=== PATIENT | female | born 1945 | race Caucasian/White ===

== ENCOUNTER 2020-01-01 09:43 | Outpatient (CLI) | payer OTHER, SELFPAY ==
--- NOTE | ~2020-01-01 | PE_ITS ---
EXAMINATION: PET skull to mid thigh DATE: 01/01/2020 14:13 INDICATION: Anal cancer. TECHNIQUE: Blood glucose level was 149 mg/dL. 8.87 mCi of 18-fluorodeoxyglucose (18-FDG) was administ ered i.v. Low dose computed tomography (CT) images were acquired from the base of the brain to the pr oximal thighs for attenuation correction and anatomic localization. Automated exposure control was em ployed. Dose-length product (DLP) was 1035 mGy-cm. Positron emission tomography (PET) images were acq uired in the same distribution. COMPARISON: PET CT 09/06/2019, 06/12/2019, CT abdomen and pelvis 05/07/2019 FINDINGS: Head/neck: There is increased activity in the paraspinal muscles and glottis without CT correlate, li kate physiologic. There are no pathologically enlarged lymph nodes. Chest: There is mild atelectasis in the lungs. There is a 5 mm nodule in right upper lobe without inc reased activity. There is a 14 mm nodule in right lower lobe with maximum SUV of 3.2. There is a 5 mm nodule in right lower lobe without increased activity. There is a 7 mm nodule in right lower lobe wi thout increased activity. There is an 8 mm nodule in right lower lobe without increased activity. No pleural effusion. Cardiomegaly is noted. There are coronary artery calcifications. 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 There are no pathologically enlarged lymph nodes. Abdomen/pelvis/proximal thighs: There is diffuse hepatic steatosis. Calcifications in the spleen are consistent with old granulomatous disease. There are changes of cholecystectomy. The pancreas, adrena l glands, and right kidney are normal. There are dystrophic calcifications in left kidney. There is d iverticulosis of the colon without evidence of diverticulitis. There are no dilated loops of bowel. T here is perianal soft tissue thickening with subjective improvement. Maximum SUV is 4.2, decreased fr om 5.8 on 09/06/2019. There are no pathologically enlarged lymph nodes. There is no free intraperiton eal fluid. IMPRESSION: 1. New pulmonary nodules with increased activity in the largest nodule, consistent with metastatic di sease. 2. Perianal soft tissue thickening with increased activity, improved from 09/06/2019, consistent with primary malignancy. 3. 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 Reviewed, dictated and finalized at location A. TING MACHINE OPERATOR IMPRESSION: 1. New pulmonary nodules with increased activity in the largest nodule, consist ent with metastatic disease. 2. Perianal soft tissue thickening with increased activity, improved from 09/06, consistent with primary malignancy. 3. 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
[2020-01-01 10:57] LABS: Glucose Point of Care 149 (65-105)
== END 2020-01-01 09:44 | disposition home or self-care (01) ==
LOC: ANHIMG 09:44
PROVIDERS: PCP Physician Assistant; Visit Provider Radiology Radiation Oncology
DX: C21.1 Malignant neoplasm of anal canal (principal); R91.8 Other nonspecific abnormal finding of lung field; I71.2 Thoracic aortic aneurysm, without rupture
CPT/HCPCS: 78815; A9552

== ENCOUNTER 2020-01-10 12:43 | Outpatient (CLI) | payer OTHER, SELFPAY ==
--- NOTE | ~2020-01-10 | US_ITS ---
EXAMINATION: US soft tissue UE RT DATE: 01/10/2020 13:18 INDICATION: Right upper extremity localized swelling. TECHNIQUE: Multiple grayscale and Doppler ultrasound images of the right upper extremity were obtaine d. COMPARISON: None FINDINGS: There is an ill-defined 2.1 x 1.4 x 0.6 cm hypoechoic subcutaneous mass in the wrist in the patient's area of concern. The echotexture is similar to normal subcutaneous fat. IMPRESSION: 1. Nonspecific subcutaneous mass in the patient's area of concern at the wrist, likely inflammation. Reviewed, dictated and finalized at location A. PICKER
== END 2020-01-10 12:44 | disposition home or self-care (01) ==
PROVIDERS: PCP Physician Assistant; Visit Provider Radiology Radiation Oncology
DX: R22.31 Localized swelling, mass and lump, right upper limb (principal)
CPT/HCPCS: 76882

== ENCOUNTER 2020-01-24 10:00 | Outpatient (CLI) | payer OTHER, SELFPAY ==
--- NOTE | 2020-01-24 10:02 | ECG_ITS ---
Measurements Intervals [place] Rate: 85 P: [place]: 0 QRS: -5 QRSD: 83 T: 68 QT: 376 QTc: 450 Interpretive Statements SINUS RHYTHM BORDERLINE AV CONDUCTION DELAY BORDERLINE ECG Electronically Signed On 01-24-2020 11:05:02 ENGINEER ASSISTANT by Abhilash Dumont D.O.
[2020-01-24 10:42] LABS: Basophils Absolute Auto 0.1 K/mm3 (0.0-0.1); Basophils Percent Auto 0.6 % (0.2-1.2); Eosinophils Absolute Auto 0.2 K/mm3 (0-0.3); Eosinophils Percent Auto 1.7 % (0-4.4); Hematocrit 38.2 % (37.0-47.0); Hemoglobin 11.9 g/dL (12.0-15.0); Immature Granulocyte Absolute 0.06 K/mm3 (0.00-0.031); Immature Granulocyte Percent A 0.7 % (0-0.5); Lymphocytes Absolute Auto 2.15 K/mm3 (0.9-3.2); Lymphocytes Percent Auto 23.8 % (18.3-44.2); Mean Corpuscular HGB Conc 31.2 g/dl (32-36); Mean Corpuscular Hemoglobin 28.7 pg (26-34); Mean Corpuscular Volume 92.3 fl (80-100); Mean Platelet Volume 9.6 fl (7.4-10.4); Monocytes Absolute Auto 0.6 K/mm3 (0.1-0.6); Monocytes Percent Auto 6.6 % (2.6-8.5); Neutrophils Percent Auto 66.6 % (45.5-73.1); Platelet Count Result 291 k/mm3 (150-375); Red Blood Count 4.14 M/mm3 (4.2-5.4); Red Cell Distribution Width 14.1 % (11.5-14.5)
[2020-01-24 10:53] LABS: INR 0.9; Prothrombin Time 12.2 Seconds (11.1-14.7)
[2020-01-24 10:54] LABS: Partial Thromboplastin Time 25.2 SECONDS (22.3-36.8)
[2020-01-24 10:56] LABS: Blood Urea Nitrogen 34 mg/dL (7-17); Calcium 9.1 mg/dL (8.4-10.2); Carbon Dioxide 24 mmol/L (22-30); Chloride 104 mmol/L (98-107); Estimated Glomerular Filt Rate 37; Glucose 225 mg/dL (65-105); Potassium 4.1 mmol/L (3.4-5.0); Sodium 137 mmol/L (137-145)
== END 2020-01-24 10:01 | disposition home or self-care (01) ==
PROVIDERS: Anesthesiology; PCP Physician Assistant; Visit Provider Surgery
DX: Z01.818 Encounter for other preprocedural examination (principal); E11.9 Type 2 diabetes mellitus without complications; C21.0 Malignant neoplasm of anus, unspecified
CPT/HCPCS: 36415; 80048; 85025; 85610; 85730; 93005

== ENCOUNTER 2020-01-30 00:51 | Day surgery (SDC) | payer OTHER, SELFPAY ==
[2020-01-21 14:27] VITALS: BMI 38.2
[2020-01-30] VITALS (7 sets, daily range): BP systolic 90–118; BP diastolic 49–65; PULSE 65–87; RESP 10–18; TEMP 36.6; O2SAT 94–100
--- NOTE | ~2020-01-30 | XR_ITS ---
EXAMINATION: XR chest port-a-cath/central DATE: 01/30/2020 13:51 INDICATION: Port placement. TECHNIQUE: A single frontal view of the chest was obtained. COMPARISON: Chest 2 views 05/20/2019, PET CT 01/01/2020 FINDINGS: There is mild atelectasis in the lower lung zones. No pleural effusion or pneumothorax. The heart size is normal. There are prominent paracardial fat pads. There is a right internal jugular po rt with tip in superior vena cava. IMPRESSION: 1. Port tip in superior vena cava. 2. Mild atelectasis in the lower lung zones. Reviewed, dictated and finalized at location A.
--- NOTE | ~2020-01-30 | XR_ITS ---
EXAMINATION: XR fl guide central line place DATE: 01/30/2020 13:21 INDICATION: Port placement. TECHNIQUE: A single intraoperative fluoroscopic view of the chest was obtained. I was not present. Fl uoroscopy exposure time was 22 seconds. COMPARISON: Chest 2 views 05/20/2019 FINDINGS: There is a right internal jugular port with tip not included. IMPRESSION: 1. Port placement. Reviewed, dictated and finalized at location A. IMPRESSION: 1. Port placement.
--- NOTE | 2020-01-30 08:01 | PM.HPGS ---
History of Present Illness History of Present Illness Consent: Risks, benefits, and alternatives of placement of a Port-A-Cath have been discussed and questions answered. Patient agrees to proceed with procedure. Chief complaint: malignant neoplasm of anus Narrative: Hayley Emery is a 74 year old female presents at this time for placement of a Port-A-Cath in her to have chemotherapy. 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 Biopsy showing the tumor was done by flexible sigmoidoscopy in October 2019. Patient is working with Dr. Ballard for this chemo. Review of Systems Constitutional: Constitutional: Reports no additional constitutional complaints, Reports fatigue and Denies malaise Comments: Obesity Eyes: Eyes: Denies change in vision and Denies loss of vision ENT: Reports Normal hearing present, Denies change in voice, Denies dizziness, Denies hoarseness and Denies sore throat Cardiovascular: Cardiovascular: Denies chest pain, Denies leg edema and Denies dyspnea Respiratory: Respiratory: Denies cough, Denies dyspnea and Denies wheezing Gastrointestinal: Gastrointestinal: Denies hematochezia, Denies change in bowel habits and Denies heartburn Genitourinary: Genitourinary: Denies urinary frequency and Denies urinary incontinence Neurologic: Reports Normal hearing present, Denies confusion, Denies dizziness, Denies loss of vision, Denies memory loss and Denies seizure-like activity Psychiatric: Psychiatric: Denies confusion, Denies depression and Denies memory loss Endocrine: Endocrine: Denies cold intolerance and Reports fatigue Comments: History of type 2 diabetes on insulin. Hematologic/Lymphatic: Hematologic/Lymphatic: Denies easy bleeding and Denies easy bruising Allergic/Immunologic: Allergic/Immunologic: Denies wheezing PMFSH Past Medical History Medical History (Updated 01/30/20 @ 11:49 by Matthew Gutierrez MD) Anal cancer (Unknown) Diabetes HTN (hypertension) Morbid obesity Meds Home Medications and Allergies Home Medications Medication Instructions Recorded Confirmed Type allopurinol 100 mg DAILY 10/17/19 01/30/20 History calcitriol 0.25 mcg DAILY 10/17/19 01/30/20 History ergocalciferol (vitamin D2) 50,000 unit WEEKLY 10/17/19 01/30/20 History [Vitamin D2] insulin glargine [Lantus U-100 64 unit SUBCUT USEASDIRECTD 10/17/19 01/30/20 History Insulin] insulin lispro [Humalog U-100 12 unit USEASDIRECTD 10/17/19 01/30/20 History Insulin] simvastatin 20 mg PO DAILY 10/17/19 01/30/20 History aspirin [Aspir-81] 81 mg PO DAILY 01/21/20 01/30/20 History Allergies Allergy/AdvReac Type Severity Reaction Status Date / Time No Known Allergies Allergy Unknown Verified 01/30/20 10:27 Exam Const: General: cooperative, healthy appearing, no acute distress, well developed and alert; No confusion Nutritional Appearance: well nourished Orientation/consciousness: patient oriented x3 and No confusion Limitations: no limitations HENMT: Head: normal to inspection, normocephalic and atraumatic Ears: hearing grossly normal bilaterally General nose exam: Normal external nose present Face and sinus: no edema Mouth: Yes Normal oral and palatal mucosa present and Yes lip normal Throat: posterior oropharynx normal Eyes: General: appearance normal, both eyes and all related structures Sclera: sclerae normal Pupils: Equal, round and reactive pupils present EOM: EOMs intact bilaterally Neck: Neck: normal visual inspection, no lymphadenopathy, trachea midline and supple Resp: Effort & Inspection: normal respiratory effort and able to speak in complete sentences Auscultation: clear to auscultation bilaterally Cardio: Jugular venous distension: no JVD Rate: regular rate Rhythm: regular rhythm GI: Inspection: normal to inspection GI Palp: Yes Soft to palpation, No Tenderness to palpation present (GI),
[2020-01-30 10:09] LABS: Glucose Point of Care 176 (65-105)
[2020-01-30] MEDS: LACTATED RINGERS 1,000 ML 30 ML IV CONT (10:45)
--- NOTE | 2020-01-30 11:49 | WPDANESEPPF ---
Anes - Initial Pre Proc Eval Procedure: Operation Date: 01/30/20 12:00 Proposed Procedures p Insertion Jackie Cath - Paul Aldana MD Date/Time: 01/30/20 11:49 Surgeon: Paul Aldana MD Pre Op Diagnosis: malignant neoplasm of anus Patient Data Age: 74 Gender: F Height: 5 ft 1 in Weight: 89.5 kg Last Vital Signs Temp 97.9 F 01/30/20 09:30 Pulse 84 01/30/20 09:30 Resp 18 01/30/20 09:30 BP 101/49 L 01/30/20 09:30 Pulse Ox 95 01/30/20 09:30 Allergies Allergy/AdvReac Type Severity Reaction Status Date / Time No Known Allergies Allergy Unknown Verified 01/30/20 10:27 Home Medications Medication Instructions Recorded Confirmed Type allopurinol 100 mg DAILY 10/17/19 01/30/20 History calcitriol 0.25 mcg DAILY 10/17/19 01/30/20 History ergocalciferol (vitamin D2) 50,000 unit WEEKLY 10/17/19 01/30/20 History [Vitamin D2] insulin glargine [Lantus U-100 64 unit SUBCUT USEASDIRECTD 10/17/19 01/30/20 History Insulin] insulin lispro [Humalog U-100 12 unit USEASDIRECTD 10/17/19 01/30/20 History Insulin] simvastatin 20 mg PO DAILY 10/17/19 01/30/20 History aspirin [Aspir-81] 81 mg PO DAILY 01/21/20 01/30/20 History Laboratory Tests 01/30/20 10:01 POC Capillary Glucose 176 mg/dl H mg/dl (65-105) Patient hx anesthesia problems: none Family hx anesthesia problems: none PMFSH Past Medical History Medical History (Updated 01/30/20 @ 11:49 by Matthew Gutierrez MD) Anal cancer (Unknown) Diabetes HTN (hypertension) Morbid obesity Anes - Eval Final PreProcedure Day of Procedure 01/30/20 11:49 Patient weight: obese Heart: regular rate and rhythm Lungs: clear to auscultation Airway: Mallampati scale class III Neurological: alert and oriented Last oral intake: >/= 8 hours ASA classification: III Emergent: no Anesthetic plan: proceed Anesthesia type and monitoring: general GIVS and standard monitoring Informed Consent: The patient's anesthetic plan and its attendant risks and benefits were discussed with the patient/family/POA. Questions were solicited and answers provided to the satisfaction of the patient/family/POA.
[2020-01-30] MEDS: BUPIVACAINE/EPINEPHRINE 0.5% 10 ML VIAL 12 ML INFILTRATE (12:13)
[2020-01-30] MEDS: ceFAZolin 2 GM/D5W 50 ML 2 GM/50 ML BAG IVPB (12:13)
[2020-01-30] MEDS: HEPARIN SODIUM 5,000 UNITS/ML VIAL 5000 UNITS IRRIGATION (12:13)
--- NOTE | 2020-01-30 13:15 | SUR.OPER ---
eBL:[id number]
--- NOTE | 2020-01-30 13:41 | PM.PROC ---
Procedure Note - Detailed Date of procedure: 01/30/20 Pre-op diagnosis: malignant neoplasm of anus Post-op diagnosis: same Procedure performed: Placement of Port-A-Cath right IJ approach Description of procedure: Patient was seen and marked in the pre-op area prior to coming to the OR. Patient was brought to the operating room. She was placed supine on the operating table and general IV sedation was induced. The nurse loader provided oxygen and IV sedation. Patient's head was carefully turned to the left side while in the supine position and the patient's entire neck and anterior chest on both sides was prepped and draped in the usual sterile fashion. Following this the appropriate time-out was completed confirming procedure and patient. We confirmed that all the needed equipment was present in the room. Following this the ultrasound probe was draped into the field and using the probe we carefully identified the carotid artery and jugular vein on the right neck. I marked the skin directly over the Rt. internal jugular vein. Following this, using the continuous ultrasound guidance, a Cook needle was placed through the skin into this vein. I then was able to draw back good dark blood. Once this was completed a guidewire using a J-tip was advanced through the needle and then the needle and the guidewire cover were withdrawn. C-arm fluoroscopy was used to confirm that the guidewire was nicely in the venous system. Once this was confirmed with the C - arm I preceded on by making the pocket for the port on the patient's anterior right chest approximately 3 centimeters below the clavicle overlying the chest wall. Local anesthetic was infiltrated into the skin where there was a transverse incision marked out. Incision was made and we made a pocket inferior to the incision with just a little dissection superior. The Smart port was tried in the pocket and seemed to fit well. Following this the catheter which had been placed on a tunneling device was tunneled from the port site on the anterior right chest up to the right neck where a small incision had been made with an #11 blade knife. Then the catheter was pulled through so that we would have 15 centimeters to put into the central venous system once the dilation took place. Following this we placed the dilator and sheath over the guidewire in the jugular vein and carefully dilated the tract into the central venous system. The guidewire and dilator were then removed, carefully covering the end of the sheath to prevent air embolus. The end of the catheter which had been cut off straight across and the tip checked was then inserted into the sheath and into the neck. I then carefully pulled the 2 arms of the tear-away sheath away as the academic affairs assistant held the catheter in position with a DeBakey forceps. Following this we checked the position of the catheter with C-arm fluoroscopy confirming that the tip seemed to be in the distal superior vena cava near the junction with the right atrium. I felt that it was in good position and so the rest of the catheter was pulled down toward the feet into the port site. We then measured to the appropriate position to cut the catheter to attach it to the port stem. Then the connector sealing device for the catheter port was placed onto the catheter and then the catheter cut to the appropriate length and inserted onto the stem of the port. Then the connector was advanced onto the stem over the catheter sealing it to the port. A single 3- 0 Prolene suture was also used during this to suture the connector to the port and to the underlying musculature. Following this at one other site the port was sutured to the underlying musculature with the 3-0 Proline. Both prior to connecting the catheter to the port and then using a straight [place] needle following this connection, the port was aspirated of good dark blood and flushed with heparinized saline to keep the catheter from having any a
--- NOTE | 2020-01-30 15:06 | SUR.PHASEII ---
1540 - dr. quionnez in room talking with pt.
[2020-02-01 07:33] LABS: Glucose Point of Care 163 (65-105)
== END 2020-01-30 15:21 | disposition home or self-care (01) ==
PROVIDERS: PCP Physician Assistant; Visit Provider Surgery
PROC: (CPT 36561; principal; 2020-01-30 12:00)
DX: C21.0 Malignant neoplasm of anus, unspecified (principal); I10 Essential (primary) hypertension; E11.9 Type 2 diabetes mellitus without complications; Z79.82 Long term (current) use of aspirin; Z79.4 Long term (current) use of insulin; E66.01 Morbid (severe) obesity due to excess calories; Z68.37 Body mass index [BMI] 37.0-37.9, adult
CPT/HCPCS: 36561; 77001; C1788; J0690; J1644; J2370; J2704; J3010; J7030; J7120

== ENCOUNTER 2020-04-13 23:17 | Emergency (ER) | payer OTHER, SELFPAY ==
--- NOTE | ~2020-04-13 | XR_ITS ---
EXAMINATION: XR chest 2V EXAM DATE: 04/13/2020 23:38 INDICATION: Shortness of breath. TECHNIQUE: Frontal and lateral projections of the chest obtained and reviewed. Comparison is made to prior examination from 01/30/2020. FINDINGS: There is a right-sided portacatheter. The lungs are clear. There are no pleural effusions . Cardiac silhouette is prominent but magnified on this AP technique. There is no pneumothorax kelly pected. There are mild bony degenerative changes. There is aortic arteriosclerosis. IMPRESSION: No acute cardiopulmonary findings. Reviewed, dictated and finalized at location A.
[2020-04-13 23:16] VITALS: BP 128/72; PULSE 90; RESP 12; TEMP 36.6; O2SAT 99
[2020-04-13 23:23] VITALS: PULSE 86
--- NOTE | 2020-04-13 23:23 | ECG_ITS ---
Measurements Intervals [place] Rate: 85 P: 78 LA: 183 QRS: 18 QRSD: 86 T: 77 QT: 361 QTc: 431 Interpretive Statements SINUS RHYTHM BASELINE ARTIFACT- I, II, III, AVL, V1 BORDERLINE ECG Electronically Signed On 04-14-2020 7:08:51 CDT by Abhilash Dumont D.O.
--- NOTE | 2020-04-13 23:36 | ED.SOB ---
HPI - SOB/Dyspnea General Chief Complaint: Shortness of Breath/Dyspnea Stated Complaint: SOB X 1 YEAR History of Present Illness HPI Narrative: SOB and weakness for the past month. She is only SOB with exertion, no issues at rest. No cough, congestion, CP. Additionally she has felt generally weak and feels as though she might fall. No syncope, falls. Related Data Home Medications Medication Instructions Recorded Confirmed Lantus U-100 Insulin 64 unit SUBCUT USEASDIRECTD 10/17/19 02/29/20 allopurinol 100 mg DAILY 10/17/19 02/29/20 calcitriol 0.25 mcg DAILY 10/17/19 02/29/20 ergocalciferol (vitamin D2) 50,000 unit WEEKLY 10/17/19 02/29/20 [Vitamin D2] insulin lispro [Humalog U-100 12 unit USEASDIRECTD 10/17/19 02/29/20 Insulin] aspirin [Aspir-81] 81 mg PO DAILY 01/21/20 02/29/20 simvastatin 40 mg PO HS 02/29/20 02/29/20 dexamethasone 4 mg PO BID 03/21/20 03/21/20 Allergies Allergy/AdvReac Type Severity Reaction Status Date / Time No Known Allergies Allergy Unknown Verified 01/30/20 10:27 Review of Systems Review of Systems: All systems reviewed & are unremarkable except as noted in HPI and below Constitutional: Constitutional: Denies chills, Denies fever(s) and Reports weakness ENT: Denies dizziness Cardiovascular: Cardiovascular: Denies chest pain Respiratory: Respiratory: Denies cough and Reports dyspnea Gastrointestinal: Gastrointestinal: Denies abdominal pain, Denies diarrhea, Denies nausea and Denies vomiting Genitourinary: Genitourinary: Denies hematuria and Denies dysuria Neurologic: Denies headache(s) and Denies focal weakness Hematologic/Lymphatic: Hematologic/Lymphatic: Denies easy bleeding and Denies easy bruising PMFSH Past Medical History Medical History Anal cancer (Unknown) Diabetes HTN (hypertension) Morbid obesity Exam Const: General: no acute distress, alert and ill appearing chronically Nutritional Appearance: well nourished Orientation/consciousness: patient oriented x3 HENMT: Head: normal to inspection Mouth: Yes dry mucous membranes Eyes: Conjunctivae: conjunctivae normal Pupils: Equal, round and reactive pupils present EOM: EOMs intact bilaterally Resp: Effort & Inspection: normal respiratory effort Auscultation: clear to auscultation bilaterally Cardio: Rate: regular rate Rhythm: regular rhythm GI: Inspection: non-distended GI Palp: Yes Soft to palpation and No Tenderness to palpation present (GI) Skin: General skin exam: pallor Neuro: General: patient oriented x3, moves all extremities, no focal motor deficits and CN's II-XI intact bilaterally Speech: normal speech Extrem: General: normal to inspection and no edema Course Vital Signs Vital signs: Vital Signs Temperature 36.6 C 04/13/20 23:16 Pulse Rate 90 04/13/20 23:16 Respiratory Rate 12 04/13/20 23:16 Blood Pressure 128/72 04/13/20 23:16 Pulse Oximetry 99 04/13/20 23:16 Temperature 36.6 C 04/13/20 23:16 Pulse Rate 87 04/14/20 02:50 Respiratory Rate 19 04/14/20 02:50 Blood Pressure 162/65 H 04/14/20 02:50 Pulse Oximetry 95 04/14/20 02:50 MDM - SOB/Dyspnea MDM Narrative Medical decision making narrative: Labs indicating dehydration and UTI. Ambulating without difficulty after hydration. Will treat for UTi with oral antibiotics. [facility] Lab Data Result diagrams: 04/13/20 23:49 04/13/20 23:49 Labs: Lab Results 04/13/20 04/13/20 04/13/20 Range/Units 23:49 23:49 23:49 WBC 9.9 (4.5-10.0) K/mm3 RBC 3.72 L (4.2-5.4) M/mm3 Hgb 11.4 L (12.0-15.0) g/dL Hct 35.6 L (37.0-47.0) % MCV 95.7 (80-100) fl MCH 30.6 (26-34) pg MCHC 32.0 (32-36) g/dl RDW 18.1 H (11.5-14.5) % Plt Count 290 (150-375) k/mm3 MPV 9.2 (7.4-10.4) fl Immature Gran % (Auto) 0.4 (0-0.5) % Neut % (Auto) 69.6 (45.5
[2020-04-13] MEDS: SODIUM CHLORIDE 0.9% IV 500 ML 999 ML IV CONT (23:45)
[2020-04-13 23:56] LABS: Basophils Percent Auto 0.2 % (0.2-1.2); Eosinophils Percent Auto 0.2 % (0-4.4); Hematocrit 35.6 % (37.0-47.0); Hemoglobin 11.4 g/dL (12.0-15.0); Immature Granulocyte Absolute 0.04 K/mm3 (0.00-0.031); Immature Granulocyte Percent A 0.4 % (0-0.5); Lymphocytes Absolute Auto 1.88 K/mm3 (0.9-3.2); Mean Corpuscular Hemoglobin 30.6 pg (26-34); Mean Corpuscular Volume 95.7 fl (80-100); Mean Platelet Volume 9.2 fl (7.4-10.4); Monocytes Absolute Auto 1.1 K/mm3 (0.1-0.6); Monocytes Percent Auto 10.6 % (2.6-8.5); Neutrophils Absolute Auto 6.9 K/mm3 (1.3-6.7); Neutrophils Percent Auto 69.6 % (45.5-73.1); Platelet Count Result 290 k/mm3 (150-375); Red Blood Count 3.72 M/mm3 (4.2-5.4); Red Cell Distribution Width 18.1 % (11.5-14.5); White Blood Count 9.9 K/mm3 (4.5-10.0)
[2020-04-14] VITALS: O2SAT 94
[2020-04-14 00:07] LABS: Alanine Aminotransferase 19 U/L (4-35); Albumin Level 3.8 g/dL (3.5-5.1); Alkaline Phosphatase 181 U/L (38-126); Aspartate Amino Transferase 24 U/L (14-36); Bilirubin,Total < 0.1 mg/dL (0.2-1.3); Blood Urea Nitrogen 28 mg/dL (7-17); Carbon Dioxide 24 mmol/L (22-30); Chloride 106 mmol/L (98-107); Estimated Glomerular Filt Rate 29; Glucose 106 mg/dL (65-105); Potassium 4.1 mmol/L (3.4-5.0); Sodium 139 mmol/L (137-145)
[2020-04-14 00:15] LABS: Prothrombin Time 13.1 Seconds (11.1-14.7)
[2020-04-14 00:16] LABS: Partial Thromboplastin Time 26.2 SECONDS (22.3-36.8)
[2020-04-14] MEDS: SODIUM CHLORIDE 0.9% IV 1,000 ML 999 ML IV CONT (00:41)
[2020-04-14 00:43] VITALS: BP 144/78; PULSE 77; RESP 14; O2SAT 96
[2020-04-14 00:54] LABS: Add Urine Microscopic? YES; Appearance Urine Clear (Clear); Bacteria Urine Trace /hpf; Bilirubin Urine Negative (Negative); Blood Urine 1+ (Negative); Color Urine Yellow (Yellow); Glucose Urine UA Negative (Negative); Ketones Urine Negative (Negative); Leukocyte Esterase Ur 3+ LEU/UL (Negative); Mucus Urine Rare /lpf; Nitrate Urine Negative (Negative); Protein Urine 1+ mg/dL (Negative); Specific Grav Ur 1.014 (1.001-1.035); Squamous Epithelial Cell Urine Occasional /hpf (Few); Urobilinogen Urine Negative mg/dL (<2.0); WBC Urine >75 /hpf
[2020-04-14 01:27] VITALS: BP 134/76; PULSE 80; RESP 17; O2SAT 98
[2020-04-14] MEDS: CEFDINIR 300 MG CAPSULE PO (01:27)
[2020-04-14 02:30] VITALS: BP 162/65; PULSE 84; RESP 18; O2SAT 97
[2020-04-14 02:50] VITALS: BP 162/65; PULSE 87; RESP 19; O2SAT 95
== END 2020-04-14 02:50 | disposition home or self-care (01) ==
PROVIDERS: Emergency Provider Emergency Medicine; PCP Physician Assistant
DX: N30.01 Acute cystitis with hematuria (principal); I10 Essential (primary) hypertension; E11.9 Type 2 diabetes mellitus without complications; E66.01 Morbid (severe) obesity due to excess calories; R94.31 Abnormal electrocardiogram [ECG] [EKG]
CPT/HCPCS: 36415; 71046; 80053; 81001; 85025; 85610; 85730; 86850; 86900; 86901; 87086; 87088; 93005; 96360; 96361; 99284; A9270; J7030; J7040

== ENCOUNTER 2020-04-16 00:25 | Observation (INO) | payer OTHER, SELFPAY ==
[2020-04-16] VITALS (16 sets, daily range): BP systolic 81–142; BP diastolic 48–75; PULSE 74–103; RESP 16–20; TEMP 35.7–36.8; O2SAT 95–100; BMI 37.3
--- NOTE | ~2020-04-16 | US_ITS ---
EXAMINATION: US venous doppler UE RT DATE: 04/16/2020 15:23 INDICATION: Right upper limb swelling. TECHNIQUE: Grayscale ultrasound images without and with compression and Doppler ultrasound images of the right upper extremity veins were obtained. COMPARISON: None. FINDINGS: The visualized portions of the right internal jugular vein, subclavian vein, axillary vein, brachial veins, basilic vein, cephalic vein, radial vein, and ulnar vein are patent. IMPRESSION: 1. No deep venous thrombosis. Reviewed, dictated and finalized at location A.
--- NOTE | ~2020-04-16 | US_ITS ---
EXAMINATION: US venous doppler LE RT DATE: 04/16/2020 14:56 INDICATION: Right lower limb swelling. TECHNIQUE: Grayscale ultrasound images without and with compression and Doppler ultrasound images of the right lower extremity veins were obtained. COMPARISON: Ultrasound 05/05/2011 FINDINGS: The visualized portions of right common femoral vein, profunda (deep) femoral vein, femoral vein, pop liteal vein, peroneal veins, posterior tibial veins, and greater saphenous vein outflow are patent. IMPRESSION: 1. No deep venous thrombosis. Reviewed, dictated and finalized at location A.
--- NOTE | ~2020-04-16 | XR_ITS ---
EXAMINATION: XR chest 1V portable DATE: 04/16/2020 00:54 INDICATION: Shortness of breath. TECHNIQUE: A single frontal view of the chest was obtained. COMPARISON: Chest 2 views 04/13/2020, chest CT 04/16/2020 FINDINGS: There is no pneumonia, pleural effusion, or pneumothorax. The heart size is normal. Mediast inal lipomatosis is noted. There is a right internal jugular port with tip in superior vena cava. IMPRESSION: 1. No acute cardiopulmonary disease. Reviewed, dictated and finalized at location A.
--- NOTE | ~2020-04-16 | CT_ITS ---
EXAMINATION: CTA chest PE protocol DATE: 04/16/2020 02:54 INDICATION: Shortness of breath. TECHNIQUE: Computed tomography angiography (CTA) of the chest was performed with 100 mL Omnipaque-350 intravenous contrast timed to evaluate the pulmonary arteries. Coronal maximum intensity projection 3D-reconstructions were created by the technologist. Automated exposure control and iterative reconst ruction technique were employed. The dose-length product was 686.78 mGy-cm. COMPARISON: PET/CT 01/01/2020 FINDINGS: There is mild atelectasis in the lungs. There is mild scarring in right upper lobe. There i s a 5 mm nodule in right lower lobe, improved from 7 mm on 01/01/2020. There is a 4 mm nodule in right lower lobe, improved from 12 mm. No pleural effusion. The heart size is normal. There are coronary a rtery calcifications. No pericardial effusion. There is no pulmonary embolus. There is a 5.4 cm fusif orm aneurysm of distal ascending aorta and aortic arch. There is a right internal jugular port with t ip at superior cavoatrial junction. Calcifications in the spleen are consistent with old granulomatou s disease. Calcified periportal lymph nodes are consistent with old granulomatous disease. The gallbl adder is absent. There is mild thoracic spondylosis. There are bridging endplate osteophytes at multi ple levels in the spine, consistent with diffuse idiopathic skeletal hyperostosis (DISH). IMPRESSION: 1. No pulmonary embolus. 2. 5.4 cm fusiform aneurysm of the distal ascending aorta and aortic arch, stable from 01/01/2020. 3. Right lower lobe pulmonary nodules with interval improvement, consistent with metastatic disease. Reviewed, dictated and finalized at location A. IMPRESSION: 1. No pulmonary embolus. 2. 5.4 cm fusiform aneurysm of the distal ascending aorta and aortic arch, stab le from 01/01/2020. 3. Right lower lobe pulmonary nodules with interval improvement, consistent wit h metastatic disease.
--- NOTE | 2020-04-16 00:27 | ECG_ITS ---
Measurements Intervals [place] Rate: 100 P: 58 [place]: 168 QRS: 17 QRSD: 86 T: 67 QT: 366 QTc: 474 Interpretive Statements SINUS TACHYCARDIA BASELINE WANDER- I, II BORDERLINE ECG Electronically Signed On 04-16-2020 7:03:44 CDT by Abhilash Dumont D.O.
[2020-04-16 00:49] LABS: Basophils Percent Auto 0.3 % (0.2-1.2); Eosinophils Percent Auto 0.3 % (0-4.4); Hematocrit 35.8 % (37.0-47.0); Hemoglobin 11.5 g/dL (12.0-15.0); Immature Granulocyte Absolute 0.05 K/mm3 (0.00-0.031); Immature Granulocyte Percent A 0.5 % (0-0.5); Lymphocytes Absolute Auto 2.67 K/mm3 (0.9-3.2); Lymphocytes Percent Auto 28.8 % (18.3-44.2); Mean Corpuscular HGB Conc 32.1 g/dl (32-36); Mean Corpuscular Hemoglobin 31.1 pg (26-34); Mean Corpuscular Volume 96.8 fl (80-100); Mean Platelet Volume 9.2 fl (7.4-10.4); Monocytes Absolute Auto 0.9 K/mm3 (0.1-0.6); Neutrophils Absolute Auto 5.6 K/mm3 (1.3-6.7); Neutrophils Percent Auto 60.1 % (45.5-73.1); Platelet Count Result 349 k/mm3 (150-375); Red Cell Distribution Width 18.1 % (11.5-14.5); White Blood Count 9.3 K/mm3 (4.5-10.0)
[2020-04-16 00:58] LABS: Lactic Acid Reflex 2.4 mmol/L (0.7-2.1)
[2020-04-16 01:03] LABS: Blood Urea Nitrogen 19 mg/dL (7-17); Carbon Dioxide 27 mmol/L (22-30); Chloride 104 mmol/L (98-107); Estimated CRCL calculation 39 ml/min; Estimated Glomerular Filt Rate 40; Glucose 47 mg/dL (65-105); Potassium 3.4 mmol/L (3.4-5.0); Sodium 138 mmol/L (137-145)
[2020-04-16] MEDS: DEXTROSE 50% 25 GM/50 ML SYRINGE (01:13)
--- NOTE | 2020-04-16 01:13 | PC.NURSE ---
VRBO FOR AMP D50 FROM DR KLEIN TO GIVE IVP X1
--- NOTE | 2020-04-16 02:23 | ED.SOB ---
HPI - SOB/Dyspnea General Chief Complaint: Shortness of Breath/Dyspnea Stated Complaint: sob Time Seen by Provider: 04/16/20 02:07 History of Present Illness HPI Narrative: Patient presents with lower abdominal and pelvic pain. She missed her last chemotherapy for her cancer. She said it spreading from her anus into her pelvis. She has a port for chemotherapy. She appears pale and weak. Related Data Home Medications Medication Instructions Recorded Confirmed Lantus U-100 Insulin 64 unit SUBCUT USEASDIRECTD 10/17/19 02/29/20 allopurinol 100 mg DAILY 10/17/19 02/29/20 calcitriol 0.25 mcg DAILY 10/17/19 02/29/20 ergocalciferol (vitamin D2) 50,000 unit WEEKLY 10/17/19 02/29/20 [Vitamin D2] insulin lispro [Humalog U-100 12 unit USEASDIRECTD 10/17/19 02/29/20 Insulin] aspirin [Aspir-81] 81 mg PO DAILY 01/21/20 02/29/20 simvastatin 40 mg PO HS 02/29/20 02/29/20 dexamethasone 4 mg PO BID 03/21/20 03/21/20 Allergies Allergy/AdvReac Type Severity Reaction Status Date / Time No Known Allergies Allergy Unknown Verified 01/30/20 10:27 Review of Systems Review of Systems: All systems reviewed & are unremarkable except as noted in HPI and below PMFSH Past Medical History Medical History Anal cancer (Unknown) Diabetes HTN (hypertension) Morbid obesity Exam Narrative: Exam Narrative: GENERAL: Pale weak woman with bald head. Keeps her eyes closed. HEAD: Normocephalic, atraumatic. EYES: PERRLA and EOMI. ENT: Nares clear, no rhinorrhea or epistaxis. Mucous membranes moist. NECK: Supple. CHEST: Clear to auscultation. No respiratory distress. Port in the right upper chest. HEART: Regular rate and rhythm. No murmur heard. Normal peripheral pulses. ABDOMEN: Soft, nontender, nondistended, normal active bowel sounds. EXTREMITIES: Normal range of motion. No edema. SKIN: Warm, dry, no rash. NEURO: No focal deficits. Alert and oriented x3. PSYCH: Flat affect. Course Reevaluation(s) Reevaluation #1: Went in to tell the patient about her good CAT scan of the chest except for the aortic aneurysm. She is feeling a little bit better now, on the IV fluids. She drank water, and will need to have a little snack before going upstairs. Date: 04/16/20 Time: 03:35 Consultations Consultation #1: Call Dr. Evans for admission for hypotension and hypoglycemia and lactic acidosis. Date: 04/16/20 Time: 03:36 Vital Signs Vital signs: Vital Signs Temperature 97.2 F L 04/16/20 00:18 Pulse Rate 90 04/16/20 00:18 Respiratory Rate 18 04/16/20 00:18 Blood Pressure 119/61 04/16/20 00:18 Pulse Oximetry 98 04/16/20 00:18 Temperature 97.2 F L 04/16/20 00:18 Pulse Rate 74 04/16/20 03:32 Respiratory Rate 16 04/16/20 03:32 Blood Pressure 106/75 04/16/20 03:32 Pulse Oximetry 97 04/16/20 03:32 MDM - SOB/Dyspnea Medical Records Attestation: I reviewed the patient's medical records. Lab Data Attestation: I reviewed the patient's lab results. Result diagrams: 04/16/20 00:38 04/16/20 00:38 Labs: Lab Results 04/16/20 04/16/20 04/16/20 Range/Units 00:38 00:38 00:38 WBC 9.3 (4.5-10.0) K/mm3 RBC 3.70 L (4.2-5.4) M/mm3 Hgb 11.5 L (12.0-15.0) g/dL Hct 35.8 L (37.0-47.0) % MCV 96.8 (80-100) fl MCH 31.1 (26-34) pg MCHC 32.1 (32-36) g/dl RDW 18.1 H (11.5-14.5) % Plt Count 349 (150-375) k/mm3 MPV 9.2 (7.4-10.4) fl Immature Gran % (Auto) 0.5 (0-0.5) % Neut % (Auto) 60.1 (45.5-73.1) % Lymph % (Auto) 28.8 (18.3-44.2) % Graves % (Auto) 10.0 H (2.6-8.5) % Eos % (Auto) 0.3 (0-4.4) % Baso % (Auto) 0.3 (0.2-1.2) % Lymph # (Auto) 2.67 (0.9-3.2) K/mm3 Graves # (Auto) 0.9 H (0.1-0.6) K/mm3 Eos # (Auto) 0.0 (0-0.3) K/mm3 Baso # (Auto) 0.0 (0.0-0.1) K/mm3 Abs Immat Gran (auto) 0.05 H (0.00-0.031) K/mm3 Absolute Neuts (auto) 5.6 (1.3-6.
[2020-04-16 02:28] LABS: Glucose Point of Care 53 (65-105)
[2020-04-16 02:28] LABS: Glucose Point of Care 102 (65-105)
[2020-04-16] MEDS: SODIUM CHLORIDE 0.9% IV 1,000 ML 999 ML IV CONT (03:09)
[2020-04-16 03:44] LABS: Reflex Lactic Acid Yes or No Add Lactic
[2020-04-16 04:18] LABS: Lactic Acid 1.2 mmol/L (0.7-2.1)
[2020-04-16 04:30] LABS: Glucose Point of Care 92 (65-105)
--- NOTE | 2020-04-16 04:54 | ADMGEN ---
This patient, Hayley Emery, was admitted to Medical Room 242-. Patient/family oriented to hospital policies and general routines including ID bracelet, bed and alarms, visiting hours, pain management, procedures, bathroom and other care routines, personal items, smoking policy, room service/diet, and visiting hours. Valuables list has been completed. Information on how to activate the Rapid Response Team has been discussed. Patient/Family are encouraged to report perceived risks to care and to ask questions if they do not understand what they are told or what they should do.
[2020-04-16 05:17] LABS: Glucose Point of Care 102 (65-105)
--- NOTE | 2020-04-16 05:52 | PM.IMHP ---
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 Ballard. The patient is known to have had radiation therapy last year and is currently undergoing chemotherapy, the last treatment was March 21, 2020. She reports that lately has had increased generalized weakness and debility, poor appetite, and feeling bad. She has been experiencing right leg weakness from peripheral neuropathy which is thought to be secondary to her chemotherapy. She also reports 6 falls in the last month. Yesterday the patient was feeling very nauseated but did not vomit. She was just seen in the ER two days ago when she was diagnosed with a UTI and sent home with ciprofloxacin. She last took 12 units of Novolog insulin around 5 pm yesterday evening but did not have an appetite. She only ate jello. On arrival to the ER tonight the patient was evaluated and found to have have a glucose of 47 mg/dl. She recieved D50 IV. Tonight the patient is complaining of feeling very tired and weak. She has had increased shortness of breath for various months now and denies any acute worsening shortness of breath. She also denies any cough, fevers, or chills. No sore throat is reported. On further questioning she also denies headache, dizziness, chest pain, palpitations, LE swelling, dysuria, hematuria, diarrhea, or vomiting. She was initially found to be hypotensive in the ER w/ an elevated lactic acid but this resolved w/ IV fluid therapy. We have been asked to admit the patient to the hospital for her hypoglycemia. The patient was also empirically treated with IV antibiotics by ER provider? Review of Systems Review of Systems: All systems reviewed & are unremarkable except as noted in HPI and below PMFSH Past Medical History Medical History Anal cancer (Unknown) CKD (chronic kidney disease) Diabetes HTN (hypertension) Morbid obesity Port-A-Cath in place Surgical History Surgical History History of cholecystectomy History of tubal ligation Hx of cardiac cath Hx of tonsillectomy Family History Family History Mother COPD (chronic obstructive pulmonary disease) Father Tuberculosis Social History Social History Smoking status: Never smoker Alcohol intake: never Substance use: never Spiritual care concerns: No Meds Home Medications and Allergies Home Medications Medication Instructions Recorded Confirmed Type allopurinol 100 mg PO DAILY 10/17/19 04/16/20 History calcitriol 0.25 mcg PO DAILY 10/17/19 04/16/20 History ergocalciferol (vitamin D2) 50,000 unit PO WEEKLY 10/17/19 04/16/20 History [Vitamin D2] aspirin [Aspir-81] 81 mg PO DAILY 01/21/20 04/16/20 History simvastatin 40 mg PO HS 02/29/20 04/16/20 History Imodium Multi-Symptom Relief 1 tablet PO Q2H PRN 04/16/20 04/16/20 History Lantus U-100 Insulin 35 unit SUBCUT HS #0 ml 04/16/20 04/16/20 Rx acetaminophen [Arthritis Pain 650 mg PO Q8H PRN 04/16/20 04/16/20 History Reliever] gabapentin 600 mg PO TID 04/16/20 04/16/20 History hydrocodone-acetaminophen [[place]] 1 tablet PO Q4H PRN 04/16/20 04/16/20 History insulin lispro [Humalog U-100 6 unit SUBCUT TIDWM #3 ml 04/16/20 Rx Insulin] omeprazole 20 mg PO DAILY #30 cap 04/16/20 Rx ondansetron HCl [Zofran] 4 mg PO Q8H PRN 04/16/20 04/16/20 History Allergies Allergy/AdvReac Type Severity Reaction Status Date / Time No Known Allergies Allergy Unknown Verified 01/30/20 10:27 Vital Signs Vital Signs - 24 hr 04/16/20 00:18 04/16/20 00:26 04/16/20 00:49 Temperature 36.2 C L Pulse Rate 90 90 82 Respiratory Rate
[2020-04-16 07:28] LABS: Glucose Point of Care 106 (65-105)
[2020-04-16 11:06] LABS: Hemoglobin A1C 7.8 % (<5.7)
[2020-04-16 11:26] LABS: Glucose Point of Care 164 (65-105)
[2020-04-16] MEDS: GABAPENTIN 300 MG CAPSULE 600 MG PO (15:05)
--- NOTE | 2020-04-16 16:36 | PM.DS ---
DS: Discharge Diagnosis Discharge Diagnosis (1) Hypoglycemia: Code(s): E16.2 - Hypoglycemia, unspecified Status: Acute Assessment and Plan: -----patient's appetite has decreased and her A1c is now 7.8. I have cut back her insulin since she has had multiple episodes of hypoglycemia. This may need to be increased as her diet increases. She is to take her blood glucose before every meal and before bed and record the numbers. She is to follow-up with her primary care doctor so her insulin can be adjusted as she improves. (2) Ascending aortic aneurysm: Code(s): I71.2 - Thoracic aortic aneurysm, without rupture Status: Acute Assessment and Plan: ------The patient has an ascending aortic aneurysm of 5.3 cm. I spoke with her daughter about this and the patient. They are going to follow up with vascular surgery. [facility] vascular surgery number was given at discharge. (3) Acidosis, lactic: Code(s): E87.2 - Acidosis Status: Resolved Assessment and Plan: ------Likely secondary to dehydration from poor PO intake which is now resolved. (4) Anal cancer: Code(s): C21.0 - Malignant neoplasm of anus, unspecified Status: Acute Assessment and Plan: -----currently undergoing chemo, follow-up with oncology as recommended (5) Diabetes: Code(s): E11.9 - Type 2 diabetes mellitus without complications Status: Chronic Assessment and Plan: See above (6) HTN (hypertension): Code(s): I10 - Essential (primary) hypertension Status: Chronic Assessment and Plan: Blood pressure improved to 122/59 at discharge (7) CKD (chronic kidney disease): Code(s): N18.9 - Chronic kidney disease, unspecified Status: Chronic Assessment and Plan: stable. Cr appears to be at baseline. Monitor renal function and urine output. Renally dose medications. DS: Summary Hospital Course Reason for hospitalization: Dehydration, cancer Hospital Course: Patient is 74-year-old female with known anal cancer undergoing chemotherapy who presented emergency room for decreased appetite and weakness. White blood cell count within normal limits, hemoglobin 11.5, hematocrit 35.8, platelets 349. BMP showed glucose 47, BUN 19, creatinine 1.3. Lactic acid originally 2.4. CTA was performed which showed no pulmonary emboli but did show 5.4 fusiform aneurysm of the distal ascending aorta and aortic arch which is stable from December of 2019. Also showed improvement with her right lower lobe nodule. Patient was admitted to the hospitalist service overnight for IV hydration. There is no indication of infection and her urine culture was negative from the day prior. She was originally placed on Cipro but since she has an aneurysm, this was stopped. Blood cultures are negative today but will be monitored until finalized. The next day, the patient had improved greatly. She was able to eat most of her meals and she felt like she had more energy. Physical therapy saw her and recommended home health as she lives with her daughter and her daughter helps with most of her ADLs. The patient is to follow-up with her primary care physician, vascular surgeon and oncologist. She was discharged in stable condition. Status at Discharge Functional status at discharge: uses cane/walker Overall status at discharge: patient is back to baseline Time Spent with Patient Time attestation: Total time spent providing and/or coordinating discharge services:34 min Time spent: Greater than 30 minutes Exam Narrative: Exam Narrative: General: Well developed well nourished patient resting comfortably in bed in NAD HEENT: normocephalic Neck: supple Neuro: Alert and oriented x4 CV:RRR Resp:CTA Abd: Soft, non distended. No pain to palpation. Positive bowel sounds Extremities: No swelling, erythema, or pain to palpation. DS: Data Data Completed and Pending
[2020-04-16] MEDS: HEPARIN SOD FLUSH 500 UNITS/5 ML SYRINGE IV PUSH (17:16)
--- NOTE | 2020-04-17 06:19 | CONS_ITS ---
DATE OF CONSULTATION: 04/16/2020 REASON FOR CONSULTATION: Metastatic anal cancer. 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 Unfortunately, patient had a recurrence of the cancer with metastatic involvement of lung diagnosed on March 31, 2020. She started palliative chemotherapy with carboplatin and Taxol and received 3 cycles with the last treatment on March 21, 2020. Further treatment was delayed due to the patient's recent fall. She was also treated for UTI when she came into the hospital just last weekend. The patient called back to the answering service last night with complaint of increasing shortness of breath, extreme lethargy, tiredness and fatigue and weakness in the bilateral lower extremities. I advised her to go to the ER for further evaluation from where she was admitted to the hospital. REVIEW OF SYSTEMS: Patient denies any fever, chills, and night sweats. She remains tired and fatigued, but has improved. Her breathing has improved. A 12-point review of systems was reviewed and as per HPI, otherwise negative. PAST MEDICAL HISTORY: Metastatic anal cancer, CKD, diabetes, hypertension. PAST SURGICAL HISTORY: Cholecystectomy, tubal ligation, cardiac cath, tonsillectomy. FAMILY HISTORY: Positive for COPD in the mother and TB in the father. SOCIAL HISTORY: The patient denies any history of smoking and drinking. HOME MEDICATIONS: Reviewed. ALLERGIES: REVIEWED. PHYSICAL EXAMINATION: GENERAL: This patient is an obese female, in no apparent distress. Alert and oriented. VITAL SIGNS: Per nursing note. HEENT: Normocephalic, atraumatic. Clear oropharynx. LUNGS: Clear to auscultation bilaterally. CARDIOVASCULAR: Regular rate and rhythm. No murmurs. ABDOMEN: Soft, nontender, nondistended. Bowel sounds are positive in all 4 quadrants. No hepatosplenomegaly. EXTREMITIES: No edema. NEUROLOGIC: Grossly intact. LABORATORY DATA: WBC 9.3, hemoglobin 11.5, platelets 349,000, neutrophils 60%. Creatinine 1.3. CTA chest was performed due to shortness of breath on April 16 that showed no evidence of pulmonary embolism. There was 5.4 cm aneurysm of distal ascending aorta, stable. There were right lower lobe pulmonary nodules with interval improvement consistent with metastatic disease. Right upper extremity Doppler studies showed no evidence of DVT. ASSESSMENT AND PLAN: 1. Metastatic anal cancer with lung involvement. The patient is status post chemotherapy with carboplatin and Taxol and has received 3 cycles with the last chemotherapy on March 21, 2020. Further chemotherapy was delayed due to patient's poor performance status and recent fall. We will see her back in our office next week for resumption of chemotherapy upon her clinical improvement. 2. Recent urinary tract infection. The patient has completed course of antibiotic therapy. 3. Shortness of breath. CTA chest showed improvement in the lung metastasis without any evidence of pulmonary embolism. Clinically, she has improved and should be able to go home today with followup instruction. I will see her back in my office for continuation of chemotherapy upon clinical recovery. LISA CHANDRA M.D. PIANO MOVER PIANO MOVER D I MT: Thang
--- NOTE | 2020-04-22 10:15 | PC.NURSE ---
Blood cx are negative.
== END 2020-04-16 17:19 | disposition home health service (06) ==
LOC: ANHED 02:52 → ANH2MED 04:14
PROVIDERS: Physician Assistant; Admitting Provider Family Medicine; Emergency Provider Emergency Medicine; PCP Physician Assistant; Visit Provider Internal Medicine
DX: E86.0 Dehydration (principal); E11.649 Type 2 diabetes mellitus with hypoglycemia without coma; I71.2 Thoracic aortic aneurysm, without rupture; N39.0 Urinary tract infection, site not specified; C21.0 Malignant neoplasm of anus, unspecified; E66.01 Morbid (severe) obesity due to excess calories; E11.22 Type 2 diabetes mellitus with diabetic chronic kidney disease; I12.9 Hypertensive chronic kidney disease with stage 1 through stage 4 chronic kidney disease, or unspecified chronic kidney disease; I95.9 Hypotension, unspecified; N18.9 Chronic kidney disease, unspecified; R91.8 Other nonspecific abnormal finding of lung field; R29.6 Repeated falls; Z92.21 Personal history of antineoplastic chemotherapy; Z68.37 Body mass index [BMI] 37.0-37.9, adult; R22.41 Localized swelling, mass and lump, right lower limb
CPT/HCPCS: 36415; 71045; 71275; 80048; 82948; 83036; 83605; 85025; 87040; 93005; 93971; 96374; 96375; 97161; 97165; 99285; A9270; G0378; J0696; J7030; Q9967

== ENCOUNTER 2020-06-04 02:48 | Observation (INO) | payer OTHER, SELFPAY ==
[2020-06-04] VITALS (10 sets, daily range): BP systolic 95–150; BP diastolic 46–86; PULSE 82–111; RESP 9–18; TEMP 36.4–36.8; O2SAT 94–98; BMI 37.0
--- NOTE | ~2020-06-04 | XR_ITS ---
EXAMINATION: XR tibia fibula RT 2V DATE: 06/04/2020 03:59 INDICATION: Right lower leg pain post fall TECHNIQUE: Anteroposterior and lateral views of the right tibia and fibula were obtained. COMPARISON: None. FINDINGS: Bone alignment is normal. No fracture. 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 Profiled portions of the right ankle, subtalar and talonavicular joint spaces appear relatively preserved. No right ankle joint effusion. A few small round phleboliths and larger more irregular coarse dystrophic calcification in the soft tissues anterior to the mid tibia. Diffuse subcutaneous edema about the lower leg and more prominently over the dorsum of the foot. IMPRESSION: 1. No acute osseous abnormality. 2. Severe medial compartment predominant tricompartmental osteoarthritis at the right knee. Reviewed, dictated and finalized at location A.
--- NOTE | ~2020-06-04 | XR_ITS ---
XR chest 1V portable 06/04/2020 03:59 Indication: Weakness and dyspnea Procedure: AP portable chest Comparison: Comparison to multiple prior studies sequentially, with oldest reviewed study dated 05/20. Findings: Portacatheter tip in the SVC. Heart size normal. There is atherosclerosis. No focal air spa ce disease, pulmonary edema, pleural effusion or suspected pneumothorax. Impression: 1: No acute cardiopulmonary disease. Reviewed, dictated and finalized at location B. Impression: 1: No acute cardiopulmonary disease.
--- NOTE | ~2020-06-04 | CT_ITS ---
EXAMINATION: CT brain wo con DATE: 06/04/2020 03:34 INDICATION: Right-sided weakness. Status post chemotherapy. TECHNIQUE: Computed tomography (CT) of the head was performed without intravenous contrast. The dose- length product was 605.33 mGy-cm. The mA was adjusted according to patient size. Iterative reconstruc tion technique was employed. COMPARISON: None FINDINGS: No acute intracranial hemorrhage, infarction, mass or mass effect. No ventriculomegaly or m idline shift. Basilar cisterns are patent. There are scattered mild periventricular and subcortical w jimbo matter changes, most likely related to small vessel ischemic disease (microangiopathy). There is intracranial atherosclerosis. Small air-fluid level right maxillary sinus with mucoperiosteal reacti on. Small right mastoid effusion. No depressed skull fractures. IMPRESSION: 1. No acute intracranial abnormality. 2: Mild sinus disease. 3: Chronic age-related findings. Reviewed, dictated and finalized at location B.
--- NOTE | ~2020-06-04 | US_ITS ---
EXAMINATION: US venous doppler [facility] DATE: 06/04/2020 11:35 INDICATION: Right lower limb pain and swelling TECHNIQUE: Grayscale ultrasound images without and with compression and Doppler ultrasound images of the bilateral lower extremity veins were obtained. COMPARISON: None. FINDINGS: The visualized portions of right common femoral vein, profunda (deep) femoral vein, femoral vein, pop liteal vein, posterior tibial veins, peroneal veins, gastrocnemius vein and greater saphenous vein ou tflow are patent. 11 x 6 mm subcutaneous nodule, likely a lymph node, at the right popliteal fossa. The visualized portions of left common femoral vein, profunda femoral vein, femoral vein, popliteal v ein, posterior tibial veins, peroneal veins, gastrocnemius vein and greater saphenous vein outflow ar e patent. IMPRESSION: 1. No deep venous thrombosis in either lower limb. Reviewed, dictated and finalized at location A.
--- NOTE | ~2020-06-04 | XR_ITS ---
EXAMINATION: XR hip RT 2V w AP pelvis DATE: 06/04/2020 03:59 INDICATION: Right groin pain post fall TECHNIQUE: Anteroposterior view of the pelvis and anteroposterior and frog-leg lateral views of the r ight hip were obtained. COMPARISON: None. FINDINGS: Alignment is normal. No fractures. Mild bilateral hip and sacroiliac osteoarthritis. Moderate to iraida re lower lumbar facet osteoarthritis. Enthesophytes at the bilateral greater trochanters and along th e iliac spine and crest. IMPRESSION: 1. Generous skeletal changes as detailed above. No acute osseous abnormality. Reviewed, dictated and finalized at location A.
--- NOTE | 2020-06-04 03:00 | ECG_ITS ---
Measurements Intervals [place] Rate: 110 P: 78 IN: 203 QRS: 31 QRSD: 81 T: 78 QT: 312 QTc: 423 Interpretive Statements SINUS TACHYCARDIA BORDERLINE ST-T WAVE ABNORMALITY- HIGH LATERAL LEADS BASELINE ARTIFACT- I, II, III, AVR, AVF ABNORMAL ECG Electronically Signed On 06-04-2020 12:03:56 CDT by Abhilash Dumont D.O.
[2020-06-04 04:21] LABS: Basophils Percent Auto 0.2 % (0.2-1.2); Eosinophils Absolute Auto 0.1 K/mm3 (0-0.3); Eosinophils Percent Auto 0.7 % (0-4.4); Hematocrit 33.6 % (37.0-47.0); Hemoglobin 10.5 g/dL (12.0-15.0); Immature Granulocyte Absolute 0.09 K/mm3 (0.00-0.031); Immature Granulocyte Percent A 0.7 % (0-0.5); Lymphocytes Absolute Auto 1.26 K/mm3 (0.9-3.2); Lymphocytes Percent Auto 10.4 % (18.3-44.2); Mean Corpuscular HGB Conc 31.3 g/dl (32-36); Mean Corpuscular Hemoglobin 31.5 pg (26-34); Mean Corpuscular Volume 100.9 fl (80-100); Mean Platelet Volume 9.3 fl (7.4-10.4); Monocytes Percent Auto 8.2 % (2.6-8.5); Neutrophils Absolute Auto 9.6 K/mm3 (1.3-6.7); Neutrophils Percent Auto 79.8 % (45.5-73.1); Platelet Count Result 284 k/mm3 (150-375); Red Blood Count 3.33 M/mm3 (4.2-5.4); Red Cell Distribution Width 14.5 % (11.5-14.5); White Blood Count 12.1 K/mm3 (4.5-10.0)
[2020-06-04 04:23] LABS: Add Urine Microscopic? NO; Appearance Urine Clear (Clear); Bilirubin Urine Negative (Negative); Blood Urine Negative (Negative); Color Urine Straw (Yellow); Glucose Urine UA Negative (Negative); Ketones Urine Negative (Negative); Leukocyte Esterase Ur Negative LEU/UL (Negative); Nitrate Urine Negative (Negative); Protein Urine Negative (Negative); Specific Grav Ur 1.011 (1.001-1.035); Urobilinogen Urine Negative mg/dL (<2.0)
[2020-06-04 04:23] LABS: Glucose Point of Care 197 (65-105)
--- NOTE | 2020-06-04 04:29 | ED.WEAKNESS ---
HPI - Weakness General Chief complaint: Weakness Stated complaint: WEAK Time Seen by Provider: 06/04/20 02:51 Source: patient Mode of arrival: EMS Limitations: no limitations History of Present Illness HPI Narrative: This patient is a 73 year old female with history of anal cancer with mets who presents for evaluation after suffering a fall tonight. PAtient states that her right leg gave out tonight and that caused her to fall. She states she was unable to get up so EMS was called. She states she has had pain and weakness to her right leg since she started chemotherapy in March. She reports she chronically has pain to right lower leg due to her chemo. She states her pain does not seem new. She does have new pain to right groin since her fall. She denies hitting her pain. She denies any new symptoms. She knows she is too weak to be at home. She lives with her daughter but she is unable to care for her. Related Data Home Medications Medication Instructions Recorded Confirmed allopurinol 100 mg PO DAILY 10/17/19 04/16/20 calcitriol 0.25 mcg PO DAILY 10/17/19 04/16/20 ergocalciferol (vitamin D2) 50,000 unit PO WEEKLY 10/17/19 04/16/20 [Vitamin D2] aspirin [Aspir-81] 81 mg PO DAILY 01/21/20 04/16/20 simvastatin 40 mg PO HS 02/29/20 04/16/20 Imodium Multi-Symptom Relief 1 tablet PO Q2H PRN 04/16/20 04/16/20 acetaminophen [Arthritis Pain 650 mg PO Q8H PRN 04/16/20 04/16/20 Reliever] gabapentin 600 mg PO TID 04/16/20 04/16/20 hydrocodone-acetaminophen [[place]] 1 tablet PO Q4H PRN 04/16/20 04/16/20 ondansetron HCl [Zofran] 4 mg PO Q8H PRN 04/16/20 04/16/20 omeprazole 20 mg PO DAILY 05/02/20 05/02/20 Lantus U-100 Insulin 12 unit SUBCUT HS 06/04/20 insulin regular human [Novolin R 6 sliding scale dose SUBCUT TID 06/04/20 Regular U-100 Insuln] Allergies Allergy/AdvReac Type Severity Reaction Status Date / Time No Known Allergies Allergy Unknown Verified 01/30/20 10:27 Review of Systems Review of Systems: All systems reviewed & are unremarkable except as noted in HPI and below Constitutional: Constitutional: Denies chills, Denies fever(s) and Reports weakness Eyes: Eyes: Denies change in vision Cardiovascular: Cardiovascular: Denies chest pain Respiratory: Respiratory: Denies cough and Denies dyspnea Gastrointestinal: Gastrointestinal: Denies abdominal pain, Reports nausea and Denies vomiting Musculoskeletal: Musculoskeletal: Reports myalgias Neurologic: Denies headache(s), Reports focal weakness (right side) and Reports numbness (neuropathy) [facility] Social History Social History Smoking status: Never smoker Alcohol intake: never Substance use: never Gender identity (if verbalized by the patient): Female Spiritual care concerns: No Exam Const: General: alert Orientation/consciousness: patient oriented x3 HENMT: Head: normocephalic and atraumatic Mouth: Yes Normal oral and palatal mucosa present and Yes oropharynx normal Chest: Chest palpation & inspection: normal inspection of the chest Resp: Effort & Inspection: normal respiratory effort, no retractions and no use of accessory muscles Auscultation: clear to auscultation bilaterally Cardio: Rate: regular rate Rhythm: regular rhythm Heart sounds: no murmurs GI: GI Palp: Yes Soft to palpation, No Tenderness to palpation present (GI) and No Guarding due to palpation present (GI) Skin: General skin exam: normal color Rashes: no rashes Neuro: General: patient oriented x3 and moves all extremities Extrem: General: edema bilateral Other: patient able to move legs although unable to lift off bed Course Reevaluation(s) Reevaluation #1: PAtient is resting comfortably. PAtient does appears to be at baseline status. FAmily has called and states patient is unable to care for herself and she should be not discharged home. PAtient will be admitted for placement. She does not appear
[2020-06-04 04:31] LABS: Partial Thromboplastin Time 27.8 SECONDS (22.3-36.8); Prothrombin Time 13.3 Seconds (11.1-14.7)
[2020-06-04 04:35] LABS: Alanine Aminotransferase 14 U/L (4-35); Albumin Level 3.4 g/dL (3.5-5.1); Alkaline Phosphatase 150 U/L (38-126); Aspartate Amino Transferase 21 U/L (14-36); Bilirubin,Total < 0.1 mg/dL (0.2-1.3); Blood Urea Nitrogen 27 mg/dL (7-17); Calcium 8.8 mg/dL (8.4-10.2); Carbon Dioxide 25 mmol/L (22-30); Chloride 103 mmol/L (98-107); Estimated CRCL calculation 11 ml/min; Estimated Glomerular Filt Rate 44; Glucose 204 mg/dL (65-105); Lactic Acid Reflex 2.4 mmol/L (0.7-2.1); Magnesium 1.8 mg/dL (1.6-2.3); Sodium 135 mmol/L (137-145)
--- NOTE | 2020-06-04 05:17 | PC.NURSE ---
DAUGHTER JOSE CALLED AND WANTED TO EXPRESS HER CONCERNS ABOUT THE PATIENT GOING BACK TO HER HOME. PT CURRENTLY LIVES WITH HER OTHER DAUGHTER IN A [place]. PER JOSE PT IS UNABLE TO WALK OR TAKE CARE OF HERSELF. PER JOSE PT IS NOT BEING TAKEN CARE OF AT HOME. PER JOSE PT NEEDS TO BE IN A [facility] AND SHE WOULD LIKE TO HAVE AN EVALUATION DONE.
--- NOTE | 2020-06-04 05:20 | PC.NURSE ---
I SPOKE TO PATIENT, SHE GAVE VERBAL CONSENT TO ALLOW US TO TALK TO JOSE.
--- NOTE | 2020-06-04 05:35 | PC.NURSE ---
SPOKE TO JOSE. SHE WORKS AT A [facility] IN [place] AND WOULD LIKE PATIENT PLACED THERE. JOSE STATED THAT SHE HAS SPOKE TO THE OPERATOR VACUUM AT THAT FACILITY AND HER BOSS AND THEY HAVE AN OPEN BED. I INFORMED JOSE THAT I WOULD SPEAK TO THE CHARGE NURSE AND GIVE HER A CALL BACK WHEN I KNOW WHAT ROOM THE PATIENT IS GOING TO GO TO.
--- NOTE | 2020-06-04 07:14 | PC.NURSE ---
Cindy Daughter Contact Info: [phone]
[2020-06-04 07:18] LABS: Reflex Lactic Acid Yes or No Add Lactic
--- NOTE | 2020-06-04 08:10 | PC.NURSE ---
Patient's daughter Lorena informed patient is going to room 349
--- NOTE | 2020-06-04 09:00 | ADMGEN ---
This patient, Hayley Emery, was admitted to Medical Room 349-01. Patient/family oriented to hospital policies and general routines including ID bracelet, bed and alarms, visiting hours, pain management, procedures, bathroom and other care routines, personal items, smoking policy, room service/diet, and visiting hours. Valuables list has been completed. Information on how to activate the Rapid Response Team has been discussed. Patient/Family are encouraged to report perceived risks to care and to ask questions if they do not understand what they are told or what they should do.
[2020-06-04 10:05] LABS: Glucose Point of Care 133 (65-105)
--- NOTE | 2020-06-04 10:17 | PM.IMHP ---
H&P: HPI History of Present Illness Chief complaint: frequent falls/metastatic cancer Narrative: Date of visit 06/04 1000. Hayley Emery is a 74 year old female with type 2 diabetes stage III renal failure metastatic anal carcinoma who presented to the emergency room with weakness and pain in her right leg resulting in falls. No loss of consciousness. She has been living with her daughter for realizes she is probably going to need placement. 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 She had recurrence with metastatic lung involvement earlier this year and finished course of carboplatin and Taxol last month. She has had chronic right leg pain and weakness associated with her chemotherapy but may have notice a little more swelling than usual. No fever no chills. Appetite has been fair and weight has been relatively stable. She has had a cane and a walker at home but has more and more difficulty with ambulation Review of Systems Review of Systems: Narrative: General weight is stable and is stated no fever no chills Eye no double vision or scotoma Mouth no pharyngitis laryngitis Pulmonary no shortness breath wheezing or cough CV no palpitations or chest pain GI occasional constipation no melena hematochezia Muscle skeletal as above primarily right leg Integument has had some lesions in her labial area left groin and buttocks Neuro psych affect appropriate given the circumstances [facility] Family History Family History (Updated 06/04/20 @ 10:25 by Hao Mayer MD) Mother , early 70s COPD (chronic obstructive pulmonary disease) Father , in his early 20s Tuberculosis Social History Social History Smoking status: Never smoker Alcohol intake: never Substance use: never Gender identity (if verbalized by the patient): Female Spiritual care concerns: No Meds Home Medications and Allergies Home Medications Medication Instructions Recorded Confirmed Type allopurinol 100 mg PO DAILY 10/17/19 04/16/20 History calcitriol 0.25 mcg PO DAILY 10/17/19 04/16/20 History ergocalciferol (vitamin D2) 50,000 unit PO WEEKLY 10/17/19 04/16/20 History [Vitamin D2] aspirin [Aspir-81] 81 mg PO DAILY 01/21/20 04/16/20 History simvastatin 40 mg PO HS 02/29/20 04/16/20 History Imodium Multi-Symptom Relief 1 tablet PO Q2H PRN 04/16/20 04/16/20 History acetaminophen [Arthritis Pain 650 mg PO Q8H PRN 04/16/20 04/16/20 History Reliever] gabapentin 600 mg PO TID 04/16/20 04/16/20 History hydrocodone-acetaminophen [[place]] 1 tablet PO Q4H PRN 04/16/20 04/16/20 History omeprazole 20 mg PO DAILY #30 cap 04/16/20 Rx ondansetron HCl [Zofran] 4 mg PO Q8H PRN 04/16/20 04/16/20 History omeprazole 20 mg PO DAILY 05/02/20 05/02/20 History Lantus U-100 Insulin 12 unit SUBCUT HS 06/04/20 History insulin regular human [Novolin R 6 sliding scale dose SUBCUT TID 06/04/20 History Regular U-100 Insuln] Allergies Allergy/AdvReac Type Severity Reaction Status Date / Time No Known Allergies Allergy Unknown Verified 01/30/20 10:27 Vital Signs Vital Signs - 24 hr 06/04/20 02:56 06/04/20 04:16 06/04/20 05:38 Temperature 36.8 C Pulse Rate 111 H 93 94 Respiratory Rate 18 16 18 Blood Pressure 140/84 113/72 139/86 Pulse Oximetry 98 98 96 06/04/20 07:17 06/04/20 08:00 06/04/20 08:04 Temperature Pulse Rate 88 87 87 Respiratory Rate 15 15 15 Blood Pressure 111/52 L 95/46 L 110/59 L Pulse Oximetry 97 95 96 06/04/20 08:54 06/04/20 09:36 Temperature 36.4 C Pulse Rate 88 93 Respiratory Rate 15 16 Blood Pressure 115/55 L 132/55 L Pulse Oximetry 98 97 Exam Narrative: Exam Narrative: Blood pressure 132/56 pulse is 90 and regular afebrile saturating 97% room air Pupil equal reactive to light sclera anicteric
[2020-06-04 12:10] LABS: Glucose Point of Care 200 (65-105)
[2020-06-04] MEDS: SODIUM CHLORIDE 0.9% IV 1,000 ML 125 ML IV CONT ×2 (12:19→20:11)
[2020-06-04] MEDS: TOLNAFTATE 1% POWDER 45 GM BTL 1 APPLIC TOPICAL ×2 (13:36→20:08)
[2020-06-04] MEDS: GABAPENTIN 300 MG CAPSULE 600 MG PO (16:52)
[2020-06-04 16:58] LABS: Glucose Point of Care 148 (65-105)
[2020-06-04 19:00] LABS: SARS-CoV-2 RNA PCR Negative
[2020-06-04] MEDS: SIMVASTATIN 20 MG TABLET 40 MG PO (20:07)
[2020-06-04] MEDS: ENOXAPARIN 40 MG/0.4 ML SYRINGE SUB-Q (20:08)
[2020-06-04] MEDS: INSULIN GLARGINE (*BKC) 100 UNITS/ML 16 UNITS SUB-Q (20:09)
[2020-06-04 21:25] LABS: Glucose Point of Care 152 (65-105)
[2020-06-05] MEDS: SODIUM CHLORIDE 0.9% IV 1,000 ML 125 ML IV CONT (04:21)
[2020-06-05 04:24] VITALS: BP 120/54; PULSE 76; RESP 14; TEMP 36.6; O2SAT 97
[2020-06-05 06:36] LABS: Basophils Percent Auto 0.4 % (0.2-1.2); Eosinophils Absolute Auto 0.1 K/mm3 (0-0.3); Eosinophils Percent Auto 2.5 % (0-4.4); Hematocrit 36.2 % (37.0-47.0); Hemoglobin 11.3 g/dL (12.0-15.0); Immature Granulocyte Absolute 0.06 K/mm3 (0.00-0.031); Immature Granulocyte Percent A 1.1 % (0-0.5); Lymphocytes Absolute Auto 1.55 K/mm3 (0.9-3.2); Lymphocytes Percent Auto 29.5 % (18.3-44.2); Mean Corpuscular HGB Conc 31.2 g/dl (32-36); Mean Corpuscular Hemoglobin 31.7 pg (26-34); Mean Corpuscular Volume 101.4 fl (80-100); Mean Platelet Volume 9.1 fl (7.4-10.4); Monocytes Absolute Auto 0.6 K/mm3 (0.1-0.6); Monocytes Percent Auto 10.5 % (2.6-8.5); Neutrophils Absolute Auto 2.9 K/mm3 (1.3-6.7); Platelet Count Result 256 k/mm3 (150-375); Red Blood Count 3.57 M/mm3 (4.2-5.4); Red Cell Distribution Width 14.5 % (11.5-14.5); White Blood Count 5.3 K/mm3 (4.5-10.0)
[2020-06-05 06:58] LABS: Blood Urea Nitrogen 21 mg/dL (7-17); Calcium 8.5 mg/dL (8.4-10.2); Carbon Dioxide 25 mmol/L (22-30); Chloride 108 mmol/L (98-107); Estimated CRCL calculation 42 ml/min; Estimated Glomerular Filt Rate 54; Glucose 104 mg/dL (65-105); Potassium 4.1 mmol/L (3.4-5.0); Sodium 138 mmol/L (137-145)
[2020-06-05 07:59] LABS: Glucose Point of Care 78 (65-105)
[2020-06-05] MEDS: calcitrioL 0.25 MCG CAPSULE PO (09:10)
[2020-06-05] MEDS: ASPIRIN 81 MG ENTERIC TABLET PO (09:10)
[2020-06-05] MEDS: GABAPENTIN 300 MG CAPSULE 600 MG PO ×3 (09:10→17:28)
[2020-06-05] MEDS: PANTOPRAZOLE 40 MG TABLET PO (09:10)
[2020-06-05] MEDS: TOLNAFTATE 1% POWDER 45 GM BTL 1 APPLIC TOPICAL ×2 (09:10→20:23)
[2020-06-05] MEDS: allopurinoL 100 MG TABLET PO (09:10)
[2020-06-05] MEDS: ACETAMINOPHEN 325 MG TABLET 650 MG PO (11:52)
[2020-06-05 11:55] LABS: Glucose Point of Care 108 (65-105)
[2020-06-05 14:00] VITALS: BP 107/48; PULSE 86; RESP 16; TEMP 37.5; O2SAT 93
--- NOTE | 2020-06-05 15:14 | PM.IMPN ---
Progress Note: A&P Assessment and Plan (1) Falls: Code(s): W19.XXXA - Unspecified fall, initial encounter Status: Acute Assessment and Plan: Multifactorial. Secondary to neuropathy but also generalized debility and weakness from recent treatments and underlying carcinoma. Initial x-rays were negative and being seen by OT and PT. Prognosis is poor Care coordination arranging placement (2) Anal cancer: Code(s): C21.0 - Malignant neoplasm of anus, unspecified Status: Acute Assessment and Plan: Within the last month finished a course of palliative chemotherapy for metastatic disease. According to patient the plan was to repeat scans 2 months after last treatment which would be next month with her oncologist (3) Diabetes: Code(s): E11.9 - Type 2 diabetes mellitus without complications Status: Chronic Assessment and Plan: Follow with sliding scale while here and low-dose Lantus and decreased to 15 units daily with FBS is 78 (4) CKD (chronic kidney disease): Code(s): N18.9 - Chronic kidney disease, unspecified Status: Chronic Assessment and Plan: Stage 3 kidney disease. Creatinine slightly better than has been in the past at 1.0 today after hydration (5) Ascending aortic aneurysm: Code(s): I71.2 - Thoracic aortic aneurysm, without rupture Status: Acute Assessment and Plan: Found incidentally in march while here. Patient is not a candidate for any type of vascular repair. She is questioning about repeating scans to evaluate but should follow-up with primary or oncology later because is stated she is not a candidate have that repaired (6) Acidosis, lactic: Code(s): E87.2 - Acidosis Status: Resolved Assessment and Plan: Probable secondary to fall with some volume depletion and leukocytosis from the stress. No obvious source of any infection. Are hydrating repeat lactic acid normal at 2.0 (7) Leg pain, right: Code(s): M79.604 - Pain in right leg Status: Acute Assessment and Plan: Pain is chronic and probably neuropathic. With the slight increase in edema though rechecked venous Doppler and it was negative (8) DVT prophylaxis: Code(s): Z29.9 - Encounter for prophylactic measures, unspecified Status: Acute Assessment and Plan: Lovenox Subjective Date/time seen: 06/05/20 15:14 Interval history: Date of visit 06/06. 74-year-old white female with with chronic renal failure stage 3 and metastatic anal carcinoma admitted with weakness and falling for placement. Pain better controlled now with MS Contin and eating better. Seen by PT and attempting placement by care coordination. Exam Narrative: Exam Narrative: Blood pressure 108/48 pulse is 86 and regular afebrile saturating 93% room air Pupil equal reactive to light sclera anicteric Mouth several missing teeth well hydrated Neck supple Lungs clear CV regular rate rhythm no murmurs Abdomen is soft nontender no masses Extremities right leg more prominent than left. Dorsalis pedis posterior tibial 1+ bilaterally Neuro alert cooperative with no gross focal defects chronic weakness right side post chemo Integument looks like tenia infection of the left groin and topical antifungal per wound care Objective Data Vital Signs Vital Signs: Vital Signs - 24 hr 06/04/20 21:10 06/05/20 04:24 06/05/20 14:00 Temperature 36.6 C 36.6 C 37.5 C Pulse Rate 82 76 86 Respiratory Rate 12 14 16 Blood Pressure 104/50 L 120/54 L 107/48 L Pulse Oximetry 94 97 93 Intake/Output Intake/Output: Intake & Output 06/02/20 06/03/20 06/04/20 06/05/20 23:59 23:59 23:59 23:59 Intake Total 2030 1800 Output Total 1000 700 Balance 1030 1100 Meds/Results Medications: Active Medications Generic Name Dose Route Start Last Admin Trade Name Freq PRN Reason Stop Dose Admin Acetaminophen 650 mg 06/04/20 14:46 06/05/20 11:52 Tylenol T
[2020-06-05 16:29] LABS: Glucose Point of Care 133 (65-105)
--- NOTE | 2020-06-05 18:53 | PC.NURSE ---
I, Rina Wahl RN, have reviewed all documentation completed by Kathy Robert RN. Documentation has been completed appropriately and in its entirety.
[2020-06-05] MEDS: SIMVASTATIN 20 MG TABLET 40 MG PO (20:23)
[2020-06-05] MEDS: ENOXAPARIN 40 MG/0.4 ML SYRINGE SUB-Q (20:23)
[2020-06-05] MEDS: INSULIN GLARGINE (*BKC) 100 UNITS/ML 15 UNITS SUB-Q (20:25)
[2020-06-05 20:26] LABS: Glucose Point of Care 164 (65-105)
[2020-06-05 21:48] VITALS: BP 112/54; PULSE 87; RESP 12; TEMP 36.6; O2SAT 92
[2020-06-06 05:55] VITALS: BP 105/70; PULSE 102; RESP 12; TEMP 36.4; O2SAT 95
[2020-06-06 07:45] LABS: Glucose Point of Care 110 (65-105)
[2020-06-06 08:00] VITALS: O2SAT 95
[2020-06-06] MEDS: ERGOCALCIFEROL 50,000 UNIT CAPSULE 50000 UNITS PO (08:28)
[2020-06-06] MEDS: GABAPENTIN 300 MG CAPSULE 600 MG PO ×2 (08:28→12:22)
[2020-06-06] MEDS: PANTOPRAZOLE 40 MG TABLET PO (08:28)
[2020-06-06] MEDS: TOLNAFTATE 1% POWDER 45 GM BTL 1 APPLIC TOPICAL (08:28)
[2020-06-06] MEDS: ASPIRIN 81 MG ENTERIC TABLET PO (08:28)
[2020-06-06] MEDS: allopurinoL 100 MG TABLET PO (08:28)
[2020-06-06] MEDS: calcitrioL 0.25 MCG CAPSULE PO (08:29)
[2020-06-06 11:11] LABS: Glucose Point of Care 156 (65-105)
[2020-06-06 11:14] VITALS: BMI 10.0
[2020-06-06 14:00] VITALS: BP 95/59; PULSE 98; RESP 16; TEMP 37.6; O2SAT 94
--- NOTE | 2020-06-14 08:42 | PM.DS ---
DS: Admitting Diagnosis Admitting Diagnosis Admitting Diagnosis: Weakness DS: Discharge Diagnosis Discharge Diagnosis (1) Falls: Code(s): W19.XXXA - Unspecified fall, initial encounter Status: Acute Assessment and Plan: Multifactorial. Secondary to neuropathy but also generalized debility and weakness from recent treatments and underlying carcinoma. Initial x-rays were negative and being seen by OT and PT. Prognosis is poor Care coordination arranged placement (2) Anal cancer: Code(s): C21.0 - Malignant neoplasm of anus, unspecified Status: Acute Assessment and Plan: Within the last month finished a course of palliative chemotherapy for metastatic disease. According to patient the plan was to repeat scans 2 months after last treatment which would be next month with her oncologist (3) Diabetes: Code(s): E11.9 - Type 2 diabetes mellitus without complications Status: Chronic Assessment and Plan: Follow with sliding scale while here and low-dose Lantus and decreased to 15 units daily with FBS generally around 100 or less while here (4) CKD (chronic kidney disease): Code(s): N18.9 - Chronic kidney disease, unspecified Status: Chronic Assessment and Plan: Stage 3 kidney disease. Creatinine slightly better than has been in the past at 1.0 after hydration (5) Ascending aortic aneurysm: Code(s): I71.2 - Thoracic aortic aneurysm, without rupture Status: Acute Assessment and Plan: Found incidentally in march while here. Patient is not a candidate for any type of vascular repair. She is questioning about repeating scans to evaluate but should follow-up with primary or oncology later because is stated she is not a candidate have that repaired (6) Acidosis, lactic: Code(s): E87.2 - Acidosis Status: Resolved Assessment and Plan: Probable secondary to fall with some volume depletion and leukocytosis from the stress. No obvious source of any infection. Are hydrating repeat lactic acid normal at 2.0 (7) Leg pain, right: Code(s): M79.604 - Pain in right leg Status: Acute Assessment and Plan: Pain is chronic and probably neuropathic. With the slight increase in edema though rechecked venous Doppler and it was negative DS: Summary Hospital Course Hospital Course: 74-year-old metastatic anal cancer who has finished a course chemotherapy and radiation and had continued pain weakness falling at home. Admitted essentially for placement and pain control. Was hydrated, started on MS Contin Q 12, and seen by physical therapy. She did slowly improve and had good pain control was able to be discharged to [facility] for continued treatment. She will follow-up with her oncologist within the next month for repeat scanning to assess previous treatment and reassess ascending aortic aneurysm Time Spent with Patient Time attestation: Total time spent providing and/or coordinating discharge services: 35 minutes Exam Narrative: Exam Narrative: Condition on discharge blood pressure 96/60 pulse 98 saturating 94% on room air lungs clear CV regular rate rhythm abdomen is soft nontender extremities without edema distal pulses 1 to 2+ neuro generally weak with right leg more so though improved from admission was with assistance of to and able to be discharge to [facility] for rehab with much better pain control. Discharge Plan Discharge Attending physician on discharge: Hao Mayer Consulting providers: Dajuan Christine ; Rodney Gallardo ; Abhilash Dumont Discharging Clinician: Hao Mayer Patient Disposition: [place] Nursing Home/Asst Living Activity: as tolerated Diet: diabetic Patient Instructions: Antibiotic Form, Fall Prevention (DC), Diabetes and Nutrition (DC) Stand Alone Forms: General Discharge Information Follow-up/Referrals: Darnell Ballard MD [Physician] - Keep Reg. Scheduled
== END 2020-06-06 16:18 ==
LOC: ANHED 08:12 → ANH3MED 09:07
PROVIDERS: Admitting Provider Internal Medicine; Emergency Provider General Practice; PCP Physician Assistant; Visit Provider Internal Medicine
DX: R53.1 Weakness (principal); W19.XXXA Unspecified fall, initial encounter; C21.0 Malignant neoplasm of anus, unspecified; C78.00 Secondary malignant neoplasm of unspecified lung; M79.604 Pain in right leg; E11.22 Type 2 diabetes mellitus with diabetic chronic kidney disease; N18.3 Chronic kidney disease, stage 3 (moderate); E87.2 Acidosis; I71.2 Thoracic aortic aneurysm, without rupture; E11.40 Type 2 diabetes mellitus with diabetic neuropathy, unspecified; Z92.21 Personal history of antineoplastic chemotherapy; Z92.3 Personal history of irradiation; Z79.899 Other long term (current) drug therapy; Z79.4 Long term (current) use of insulin; Z79.82 Long term (current) use of aspirin
CPT/HCPCS: 36415; 70450; 71045; 73502; 73590; 80048; 80053; 81003; 82948; 83605; 83735; 85025; 85610; 85730; 87635; 93005; 93970; 96360; 96361; 96372; 97110; 97161; 97166; 97530; 99285; A9270; C9803; G0378; J1650; J1815; J7030; U0003

== ENCOUNTER 2020-07-09 04:09 | Emergency (ER) | payer OTHER, MEDICARE, SELFPAY ==
[2020-07-09] VITALS (12 sets, daily range): BP systolic 102–140; BP diastolic 54–99; PULSE 84–113; RESP 15–26; TEMP 36.8; O2SAT 91–100
--- NOTE | ~2020-07-09 | XR_ITS ---
EXAMINATION: XR chest 1V portable DATE: 07/09/2020 05:07 INDICATION: Weakness. TECHNIQUE: A single frontal view of the chest was obtained. COMPARISON: Chest single view 06/05/2020, chest CT 04/16/2020 FINDINGS: There is mild atelectasis in right midlung zone. No pleural effusion or pneumothorax. The h eart size is normal. There is stable widening of the mediastinum correlating with a fusiform aneurysm of thoracic aorta on the prior CT. There is a right internal jugular port with tip at superior cavoa trial junction. IMPRESSION: 1. Mild atelectasis in right midlung zone. 2. Stable widening of the mediastinum correlating with a fusiform aneurysm of thoracic aorta on the p rior CT. Reviewed, dictated and finalized at location A. IMPRESSION: 1. Mild atelectasis in right midlung zone. 2. Stable widening of the mediastinum correlating with a fusiform aneurysm of t horacic aorta on the prior CT.
--- NOTE | 2020-07-09 04:29 | PC.NURSE ---
pt found lying in pool of urine, diaper saturated, sheets saturated, multiple pressure ulcers noted to buttocks, one red area of rednesson vaginal area pt cleaned up and clean chucks under pt.
[2020-07-09] MEDS: ONDANSETRON INJ 4 MG/2 ML VIAL IV PUSH ×3 (05:39→11:20)
[2020-07-09 05:47] LABS: Basophils Absolute Auto 0.1 K/mm3 (0.0-0.1); Basophils Percent Auto 0.3 % (0.2-1.2); Eosinophils Absolute Auto 0.2 K/mm3 (0-0.3); Eosinophils Percent Auto 0.7 % (0-4.4); Hematocrit 34.3 % (37.0-47.0); Immature Granulocyte Absolute 0.46 K/mm3 (0.00-0.031); Immature Granulocyte Percent A 2.1 % (0-0.5); Lymphocytes Absolute Auto 2.51 K/mm3 (0.9-3.2); Lymphocytes Percent Auto 11.5 % (18.3-44.2); Mean Corpuscular HGB Conc 32.1 g/dl (32-36); Mean Corpuscular Hemoglobin 30.4 pg (26-34); Mean Corpuscular Volume 94.8 fl (80-100); Mean Platelet Volume 9.5 fl (7.4-10.4); Monocytes Absolute Auto 1.3 K/mm3 (0.1-0.6); Monocytes Percent Auto 6.1 % (2.6-8.5); Neutrophils Absolute Auto 17.3 K/mm3 (1.3-6.7); Neutrophils Percent Auto 79.3 % (45.5-73.1); Platelet Count Result 437 k/mm3 (150-375); Red Blood Count 3.62 M/mm3 (4.2-5.4); Red Cell Distribution Width 14.5 % (11.5-14.5); White Blood Count 21.8 K/mm3 (4.5-10.0)
[2020-07-09 05:59] LABS: INR 1.1
[2020-07-09 06:00] LABS: Partial Thromboplastin Time 57.7 SECONDS (22.3-36.8)
[2020-07-09 06:02] LABS: Alanine Aminotransferase 19 U/L (4-35); Albumin Level 2.9 g/dL (3.5-5.1); Alkaline Phosphatase 264 U/L (38-126); Anion Gap 6 mmol/L (8-16); Aspartate Amino Transferase 40 U/L (14-36); Bilirubin,Total 0.2 mg/dL (0.2-1.3); Blood Urea Nitrogen 22 mg/dL (7-17); Calcium 7.9 mg/dL (8.4-10.2); Carbon Dioxide 34 mmol/L (22-30); Chloride 92 mmol/L (98-107); Estimated CRCL calculation 49 ml/min; Estimated Glomerular Filt Rate > 60; Glucose 220 mg/dL (65-105); Potassium 3.7 mmol/L (3.4-5.0); Sodium 132 mmol/L (137-145)
--- NOTE | 2020-07-09 06:12 | PC.NURSE ---
notified MD of pts continuing pain, and level, no orders given.
[2020-07-09 06:21] LABS: CRP 17.2 mg/dL (<1.0)
--- NOTE | 2020-07-09 06:51 | PC.NURSE ---
talked to Xenia, will send a nurse to ER to [facility].
[2020-07-09] MEDS: SODIUM CHLORIDE 0.9% IV 1,000 ML 150 ML IV CONT (07:20)
--- NOTE | 2020-07-09 07:35 | ED.GENADULT ---
HPI - General Adult General Chief complaint: Extremity Injury, Lower <Lolly Kimbrough MD - Last Filed: 07/10/20 21:17> Stated complaint: L ARM PAIN <Lolly Kimbrough MD - Last Filed: 07/10/20 21:17> Time Seen by Provider: 07/09/20 04:14 <Lolly Kimbrough MD - Last Filed: 07/10/20 21:17> Source: patient and EMS <Lolly Kimbrough MD - Last Filed: 07/10/20 21:17> Mode of arrival: EMS <Lolly Kimbrough MD - Last Filed: 07/10/20 21:17> History of Present Illness HPI narrative: This patient is a 74 year old female with metastatic squamous cell anal cancer who presents from home for evaluation. Patient was discharged from [facility] with family. PAtient is on hospice and she states she thinks she was discharged from residential too soon. She reports she has very little mobility. She states her family can not take care of her, and they were given very little instruction on patient's discharge. EMS states patient was laying in hospital bed in urine soaked diaper. She was having left arm pain prior to calling EMS but her pain has now resolved. She denies sob, chest pain, abdominal pain, nausea or vomiting. She has significant pain due to severe wounds on her sacral as a result of her cancer. Her hospice is [facility]. <Lolly Kimbrough MD - Last Filed: 07/10/20 21:17> Related Data Home medications: Home Medications Medication Instructions Recorded Confirmed allopurinol 100 mg PO DAILY 10/17/19 06/04/20 calcitriol 0.25 mcg PO DAILY 10/17/19 06/04/20 ergocalciferol (vitamin D2) 50,000 unit PO WEEKLY 10/17/19 06/04/20 [Vitamin D2] aspirin [Aspir-81] 81 mg PO DAILY 01/21/20 06/04/20 simvastatin 40 mg PO HS 02/29/20 06/04/20 Imodium Multi-Symptom Relief 1 tablet PO Q2H PRN 04/16/20 06/04/20 acetaminophen [Arthritis Pain 650 mg PO Q8H PRN 04/16/20 06/04/20 Reliever] gabapentin 600 mg PO TID 04/16/20 06/04/20 ondansetron HCl [Zofran] 4 mg PO Q8H PRN 04/16/20 06/04/20 omeprazole 20 mg PO DAILY 05/02/20 06/04/20 <Lolly Kimbrough MD - Last Filed: 07/10/20 21:17> Allergies/adverse reactions: Allergies Allergy/AdvReac Type Severity Reaction Status Date / Time No Known Allergies Allergy Unknown Verified 07/09/20 07:25 <Lolly Kimbrough MD - Last Filed: 07/10/20 21:17> Review of Systems Review of Systems: All systems reviewed & are unremarkable except as noted in HPI and below <Lolly Kimbrough MD - Last Filed: 07/10/20 21:17> Constitutional: Constitutional: Denies chills and Denies fever(s) <Lolly Kimbrough MD - Last Filed: 07/10/20 21:17> Cardiovascular: Cardiovascular: Denies chest pain <Lolly Kimbrough MD - Last Filed: 07/10/20 21:17> Respiratory: Respiratory: Denies cough and Denies dyspnea <Lolly Kimbrough MD - Last Filed: 07/10/20 21:17> Gastrointestinal: Gastrointestinal: Denies abdominal pain, Denies nausea and Denies vomiting <Lolly Kimbrough MD - Last Filed: 07/10/20 21:17> Musculoskeletal: Musculoskeletal: Reports back pain <Lolly Kimbrough MD - Last Filed: 07/10/20 21:17> [facility] Family History Family History: Family History (Updated 06/04/20 @ 10:53 by Rina Wahl RN) Mother , early 70s COPD (chronic obstructive pulmonary disease) Congestive heart failure Father , in his early 20s Tuberculosis Other Diabetes mellitus <Lolly Kimbrough MD - Last Filed: 07/10/20 21:17> Social History Social History: Social History Smoking status: Never smoker Alcohol intake: never Substance use: never Spiritual care concerns: No <Lolly Kimbrough MD - Last Filed: 08/20/20 21:17> Exam Const: General: alert <Lolly Kimbrough MD - Last Filed: 07/10/20 21:17> Orientation/consciousness: patient oriented x3 <Lolly Kimbrough MD - Last Filed: 07/10/20 21:17> Eyes: EOM: EOMs intact bilaterally <Soren
--- NOTE | 2020-07-09 09:25 | PC.NURSE ---
pt placed on 2l via NC at this time for o2 saturation of 82%, RN Ashlee Mccabe informed.
--- NOTE | 2020-07-09 10:34 | PC.NURSE ---
1030-SPOKE WITH ELLA @ [facility], SHE STATED THEY ARE ATTEMPTING TO FIND PLACEMENT FOR PT AND WILL RETURN CALL SOON THEY FINALIZE EVERYTHING.
--- NOTE | 2020-07-09 11:09 | PC.NURSE ---
Lunch Tray ordered for patient at this time, regular diet per EDP.
--- NOTE | 2020-07-09 12:09 | PC.NURSE ---
pt has lunch tray at bedside. RN placed pillow donut under pt rear end.
--- NOTE | 2020-07-09 13:05 | PC.NURSE ---
1300 CONTACTED [facility],SPOKE WITH PATRIC,SHE STATED SHE WOULD SEND AN EMAIL TO ELLA TO HAVE HER CALL WITH UPDATE.
--- NOTE | 2020-07-09 14:53 | PC.NURSE ---
RN attempted to call Nursing report to [facility] [phone]. Rosalba spoke with Admission Jovana and they will return our call shortly. RN is currently in a pt room and unavailable.
[2020-07-09] MEDS: HEPARIN SOD FLUSH 500 UNITS/5 ML SYRINGE (15:51)
== END 2020-07-09 16:04 | disposition hospice, inpatient (51) ==
PROVIDERS: General Practice; Emergency Provider Emergency Medicine; PCP Physician Assistant
DX: C79.2 Secondary malignant neoplasm of skin (principal); C80.1 Malignant (primary) neoplasm, unspecified; R53.1 Weakness
CPT/HCPCS: 36415; 71045; 80053; 85025; 85610; 85730; 86140; 96361; 96374; 96375; 96376; 99284; J1170; J2405; J7030